=== PATIENT | female | born 1940 | race Caucasian/White ===

== ENCOUNTER 2019-04-06 11:19 | Observation (INO) ==
[2019-04-06] MEDS ORDERED: Ipratropium/Albuterol Neb 3 ML IH ONE (11:41)
[2019-04-06] MEDS ORDERED: 0.9 % Sodium Chloride 500 ML IVC ONE (11:41)
[2019-04-06] MEDS ORDERED: Isovue-370 500 ML BOTTLE IVP ONE (11:41)
--- NOTE | 2019-04-06 11:44 | Emergency Department Note ---
Disposition Clinical Impression: Community acquired pneumonia Qualifiers: Laterality: right Lung location: lower lobe of lung Qualified Code(s): J18.1 - Lobar pneumonia, unspecified organism Atrial fibrillation Qualifiers: Atrial fibrillation type: paroxysmal Qualified Code(s): I48.0 - Paroxysmal atrial fibrillation Disposition: Admitted As Inpatient Condition: Fair Referrals: Ahsan Swift MD [Primary Care Provider] - Forms: ED Satisfaction Letter Time of Disposition: 13:41 SOB HPI - General Chief Complaint: ED Shortness of Breath/Dyspnea Stated Complaint: SHORTNESS OF BREATH Time Seen by Provider: 04/06/19 11:23 Source: patient Mode of arrival: private vehicle Limitations: no limitations Nursing Notes Reviewed: Yes Vital Signs Reviewed: Yes - History of Present Illness Pt Subjective Complaint: shortness of breath Onset (ago): hour(s) (Says it started about 4:00 this morning) Context: recent illness (Patient has had a cough for about a week. She saw her PCP yesterday and he put her on antibiotic and prednisone. She took that yesterday. She says this morning about 4:00 she woke up to take her cough medication. She had had some episode of breaking out in a sweat earlier in the evening. She had no further sweating episodes but she noticed that when she got up and walked she felt some shortness of breath. She then noticed that the shortness of breath was worse when she lays down in the bed. Now she is not icing it not as bad when she is walking around mostly when she is laying down. She is very concerned is related to the medications she was given.) Severity: severe Consistency/Duration: constant Worsens with: lying flat Associated symptoms: Reports: cough. Denies: chest pain, fever, lower extremity pain Cough present: Yes Cough Description: Involuntary, Productive Sputum Amount: Moderate Sputum Color: Yellow - Related Data Home oxygen amount: none Home Medications Medication Instructions Recorded Confirmed Citalopram [CeleXA] 20 mg PO DAILY 07/29/17 04/06/19 Amoxicillin 875 mg PO BID 04/06/19 04/06/19 Guaifenesin/Codeine Phosphate 5 ml PO Q4-6H PRN 04/06/19 04/06/19 [Guaifen-Codeine 100-10 mg/5 ml] predniSONE [PredniSONE] 20 mg PO DAILY 04/06/19 04/06/19 Allergies Allergy/AdvReac Type Severity Reaction Status Date / Time cefdinir Allergy Rash Verified 03/17/19 08:43 doxycycline AdvReac Vomiting Verified 03/17/19 08:43 All systems ED: reviewed and negative except as stated. Constitutional: Reports: chills. Denies: fever ENT ED: Reports: congestion. Denies: ear pain, throat pain Cardiovascular: Denies: chest pain, palpitations Respiratory: Reports: cough, dyspnea, wheezes Gastrointestinal: Denies: abdominal pain, vomiting, diarrhea Musculoskeletal: Denies: back pain Integumentary: Denies: rash Past Medical History - Past Medical History Attestation: Yes The following information was validated with the patient. 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 Absent: scleral icterus, conjunctival injection - ENT ENT exam: normal exam, normal oropharynx, mucous membranes moist, normal external ear exam - Neck Neck exam: Present: normal inspection, full ROM, trachea midline. Absent: meningismus, lymphadenopathy - Chest Chest inspection: Present: normal inspection, symmetric chest wall rise. Absent: tenderness - Respiratory Respiratory exam: Present: wheezes (Faint end expiratory wheezes bilaterally). Absent: respiratory distress - Cardiovascular Cardiovascular exam: Present: regular rate, normal rhythm, normal heart sounds - Abdominal Exam Abdominal exam: Present: soft, Non-Tender, normal bowel sounds - Extremities Exam Extremities exam: Present: normal inspection. Absent: pedal edema - Neurological Exam Neurological exam: Present: alert, oriented X3 - Psychiatric Psychiatric exam: Present: normal affect, normal mood - Skin Skin exam: Present: warm, dry. Absent: rash Course Course Narrative: Patient presents with a complaint of shortness of breath. She is concerned he may be related to medications. The Story I am hearing is a lady who is been coughing for a week that has been productive of yellow sputum. She saw her doctor got started on antibiotics and steroids because of concern for lung infection. In the middle the night she breaks out in sweats. She starts feeling more short of breath. This has me concerned for pneumonia or infection. However she does describe more shortness of breath with being supine which makes concern for CHF. Looking back at her old records I see that she is following up with vascular for a superficial clot in her leg. This makes us concerned for the possibility of pulmonary embolism as a cause of her symptoms. I am going to do an infectious disease workup and the shortness of breath workup that will include a chest CT to delineate pulmonary pathology. Breathing treatments and fluids. Disposition will be based on diagnostic results and reevaluation. - Reevaluation(s) Reevaluation #1: Labs look good. CT of the chest did not show any evidence of pulmonary embolism but there is a groundglass opacification in the right lower lobe that seems consistent with pneumonia. The overall story certainly seems consistent with pneumonia. Symptoms are worsening despite outpatient therapy. I think the patient needs admission for IV antibiotics. Furthermore, while getting the breathing treatments the patient went into atrial fibrillation. The rate is 110. Despite being in atrial fibrillation she says her breathing is much better. That we will have to be monitored while she is in house. Time: 13:19 Reevaluation #2: Patient is still in atrial fibrillation but heart rate now is between 95 and 105. Blood pressure is fine. I discussed the case with the hospitalist. We will admit her to the hospital to treat the pneumonia. Workup and a monitor the atrial fibrillation as a response to the breathing treatment medication. Hop efully it will slip back into sinus rhythm. I am going to hold off on breathing treatments on the floor for now. Time: 13:40 - Consultations Consultation #1: Dr. Contreras, hospitalist - I discussed the case with the hospitalist. He accepted the patient for admission. At this point were going to just observe the patient with the atrial fibrillation at this point. Hopefully it will go back to sinus rhythm as the breathing treatment medication wears off. Time: 13:38 Vital Signs Temperature 98.5 F 04/06/19 11:20 Pulse Rate 82 04/06/19 11:20 Respiratory Rate 18 04/06/19 11:20 Blood Pressure 159/75 04/06/19 11:20 O2 Sat by Pulse Oximetry 96 04/06/19 11:20 Temperature 98.5 F 04/06/19 11:20 Pulse Rate 124 04/06/19 13:30 Respiratory Rate 15 04/06/19 13:30 Blood Pressure 122/58 04/06/19 13:30 O2 Sat by Pulse Oximetry 92 04/06/19 13:30 Oxygen Delivery Oxygen Delivery Room Air Shortness of Breath/Dyspnea - Medical Records Medical records reviewed: Yes I reviewed the patient's medical records. - Lab Data Lab results reviewed: Yes I reviewed the patient's lab results. Result diagrams: 04/06/19 11:55 04/06/19 11:55 Lab Results 04/06/19 04/06/19 04/06/19 Range/Units 11:55 11:55 11:55 WBC 3.9 L (4.3-11.1) K/mcL RBC 4.08 (3.82-4.97) M/mcL Hgb 12.6 (11.5-15.4) g/dL Hct 38.6 (35.3-44.9) % MCV 94.6 (83.0-100.0) fL MCH 30.9 (28.0-33.3) pg MCHC 32.6 (31.6-35.5) g/dL RDW 13.3 (11.5-14.5) % Plt Count 102 L (140-400) K/mcL MPV 11.1 (9.4-12.4) fL Seg Neutrophils % 64.0 % Band Neutrophils % 16.0 H (0-4) % Lymphocytes % 8.0 % Monocytes % 12.0 % Neutrophils # 3.1 (1.6-8.9) K/mcL Lymphocytes # 0.3 L (0.6-4.6) K/mcL Monocytes # 0.5 (0.0-1.3) K/mcL Platelet Estimate Slight Decrease L (Normal) Sodium 136 (136-145) mEq/L Potassium 3.6 (3.5-5.1) mEq/L Chloride 100 (98-107) mEq/L Carbon Dioxide 28 (23-29) mEq/L BUN 19 (8-23) mg/dL Creatinine 0.76 (0.60-1.20) mg/dL Est GFR ( Amer) > 60 (> 60) Est GFR (Non-Af Amer) > 60 (> 60) BUN/Creatinine Ratio 25 (6-26) Glucose 105 (70-105) mg/dL Calculated Osmolality 285 (280-300) Lactic Acid 0.8 (0.5-2.2) mmol/L Calcium 9.0 (8.6-10.3) mg/dL Troponin I (< 0.04) ng/mL 04/06/19 Range/Units 11:55 WBC (4.3-11.1) K/mcL RBC (3.82-4.97) M/mcL Hgb (11.5-15.4) g/dL Hct (35.3-44.9) % MCV (83.0-100.0) fL MCH (28.0-33.3) pg MCHC (31.6-35.5) g/dL RDW (11.5-14.5) % Plt Count (140-400) K/mcL MPV (9.4-12.4) fL Seg Neutrophils % % Band Neutrophils % (0-4) % Lymphocytes % % Monocytes % % Neutrophils # (1.6-8.9) K/mcL Lymphocytes # (0.6-4.6) K/mcL Monocytes # (0.0-1.3) K/mcL Platelet Estimate (Normal) Sodium (136-145) mEq/L Potassium (3.5-5.1) mEq/L Chloride (98-107) mEq/L Carbon Dioxide (23-29) mEq/L BUN (8-23) mg/dL Creatinine (0.60-1.20) mg/dL Est GFR ( Amer) (> 60) Est GFR (Non-Af Amer) (> 60) BUN/Creatinine Ratio (6-26) Glucose (70-105) mg/dL Calculated Osmolality (280-300) Lactic Acid (0.5-2.2) mmol/L Calcium (8.6-10.3) mg/dL Troponin I < 0.03 (< 0.04) ng/mL - Radiology Data Radiology results reviewed: Yes I reviewed the patient's radiology results. - EKG Data EKG attestation: Yes I reviewed and interpreted this EKG. EKG results narrative: Twelve-lead EKG performed at 11:21 AM. Ordered, reviewed and interpreted by ED physician shows sinus rhythm at a rate of 75. Normal axis. Left bundle branch block. Occasional PVC. Good R wave progression across precordium. No acute ischemic changes. Repeat EKG performed at 1302 p.m. Ordered, reviewed and interpreted by ED physician shows atrial fibrillation at a rate of 109. Normal axis. Left bundle branch block. Good hour progression across precordium. No obvious acute ischemic changes.
[2019-04-06 12:02] LABS: Hematocrit 38.6 % (35.3-44.9); Hemoglobin 12.6 g/dL (11.5-15.4); Mean Corpuscular HGB Conc 32.6 g/dL (31.6-35.5); Mean Corpuscular Hemoglobin 30.9 pg (28.0-33.3); Mean Corpuscular Volume 94.6 fL (83.0-100.0); Mean Platelet Volume 11.1 fL (9.4-12.4); Platelet Count 102 K/mcL (140-400); Red Blood Count 4.08 M/mcL (3.82-4.97); Red Cell Distribution Width 13.3 % (11.5-14.5); White Blood Count 3.9 K/mcL (4.3-11.1)
[2019-04-06 12:15] LABS: Lymphocytes # 0.3 K/mcL (0.6-4.6); Monocytes # 0.5 K/mcL (0.0-1.3); Neutrophils # 3.1 K/mcL (1.6-8.9); Platelet Estimate Slight Decrease (Normal)
[2019-04-06 12:20] LABS: BUN/Creatinine Ratio 25 (6-26); Blood Urea Nitrogen 19 mg/dL (8-23); Carbon Dioxide 28 mEq/L (23-29); Chloride 100 mEq/L (98-107); Glucose 105 mg/dL (70-105); Osmolality,Calculated 285 (280-300); Potassium 3.6 mEq/L (3.5-5.1); Sodium 136 mEq/L (136-145); eGFR For African Americans > 60 (> 60); eGFR For Non-African Americans > 60 (> 60)
[2019-04-06] MEDS ORDERED: Azithromycin 500 MG in D5% in Water 250 ML IVPB ONE ×2 (13:17→13:55)
[2019-04-06] MEDS ORDERED: Naloxone 0.4 MG/ML INJ IVP PRN (13:55)
[2019-04-06] MEDS: MethylPREDNISolone 40 MG/ML VIAL IVP SCH (15:43)
[2019-04-06] MEDS: 0.9 % Sodium Chloride 1,000 ML IVC SCH (15:43)
[2019-04-07] MEDS: MethylPREDNISolone 40 MG/ML VIAL IVP SCH ×3 (01:35→15:46)
[2019-04-07] MEDS: 0.9 % Sodium Chloride 1,000 ML IVC SCH (01:51)
--- NOTE | 2019-04-07 10:21 | Electrocardiograph Report ---
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
--- NOTE | 2019-04-07 12:18 | Internal Med History&Physical ---
Date of Encounter: 04/07/19 Time of Encounter: 11:35 Assessment and Plan (1) Community acquired pneumonia Current visit: Yes Status: Acute She was started on Rocephin and Zithromax in emergency room with Solu-Medrol. These will be continued with lactobacillus. Pro-calcitonin level will be done. Qualifiers: Laterality: right Lung location: lower lobe of lung Qualified Code(s): J18.1 - Lobar pneumonia, unspecified organism (2) Thrombocytopenia Current visit: Yes Status: Acute Intermittent. She does not need intervention at this time. Her PCP and/or hematology/oncology physician can order further workup. Internal Medicine - H&P: HPI Chief complaint: Cough and dyspnea Admitted From: Emergency Dept Plans for Post Hospital Care: Home History of present illness: Ms. Freeman is a 78 year old female who came to emergency room complaining of cough onset 04/01/2019. There was minimal productivity of yellow sputum. Approximately 3 days later she developed worsening dyspnea and cough. She saw her PCP and received prescriptions for amoxicillin, prednisone, and antitussive. She did not feel improved by the following day so came to emergency room. She was evaluated and was felt to have RLL pneumonia. She was admitted to [facility] floor for ongoing care needs. She states her cough and dyspnea have lessened but she does not feel back to her baseline yet. Respiratory history is significant for smoking approximately 2 years in early adulthood. She denies known chronic lung disease and does not use home oxygen. She has not been tested for sleep apnea. Past Med Surg Social Fam HX - Past Medical History Medical history: cancer, hyperlipidemia, venous stasis, other Additional medical history: venous insufficiency. varicose veins Psychiatric history: anxiety - Past Surgical History Surgical History: cataract, herniorrhaphy Additional surgical history: multiple phlebectomies, right hemicolectomy, left replacement, bilater LE phlebectomy, LASER SURGERY TO INCREASE CIRCULATION LT LEG (PHLEBECTOMY) 03/19 - Social History Smoking Status: Never smoker Smokeless Tobacco Status: No Alcohol use: none Drug use: none Internal Medicine - H&P: Meds Citalopram [CeleXA] 20 mg PO DAILY 07/29/17 [History] Amoxicillin 875 mg PO BID 04/06/19 [History] Guaifenesin/Codeine Phosphate [Guaifen-Codeine 100-10 mg/5 ml] 5 ml PO Q4-6H PRN 04/06/19 [History] predniSONE [PredniSONE] 20 mg PO DAILY 04/06/19 [History] Allergy/AdvReac Type Severity Reaction Status Date / Time cefdinir Allergy Rash Verified 03/17/19 08:43 doxycycline AdvReac Vomiting Verified 03/17/19 08:43 All Systems PM: A 10-system review of systems was performed and is negative for pertinent findings except as documented above in the HPI. Review of systems: Gen.: Her weight has minimally changed from 88.36 kg October 2017 to present weight of 90.378 kg. Cardiovascular: She denies hypertension ND heart failure angina DVT or pulmonary embolus. She has had varicose vein treatment on her lower legs. Echocardiogram 08/30/2017 showed LVEF of 55%. There was mild mitral regu rgitation. Trivial pericardial effusion was present without evidence of tamponade. The interventricular septum and posterior wall thickness measurements were 1.30 and 0.89 cm respectively. E/A ratio was 0.9. The chart reports a history of atrial fibrillation. Respiratory: As per history of present illness GI: She denies disorders of her liver gallbladder or exocrine pancreas : She denies hematuria dysuria or kidney stones Neurologic: She denies large distribution strokes or seizures. Endocrine: She has history of hyperlipidemia but does not take medication at this time. She denies diabetes or thyroid disease Hematology/oncology: She has had intermittent thrombocytopenia on labs since June 2015. She denies workup being done. 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 It was found to be stage I and no adjuvant therapy was required. She reports follow-up colonoscopy December 2018 was unremarkable. She denies anemia or other internal malignancies Psychiatric: She has anxiety and depression but denies other mental health diagnoses. [place] skeletal: She has DJD. She had left total knee replacement 2007. She denies gout or other bone joint or muscle disorders. - Constitutional Vitals: Temp Pulse Resp BP Pulse Ox 98.2 F 69 20 171/96 91 04/07/19 11:03 04/07/19 11:03 04/07/19 11:03 04/07/19 11:03 04/07/19 11:03 Exam: Gen.: She is a well-developed overweight female resting comfortably in bed who appears in no acute distress HEENT: Head is atraumatic and normocephalic. Eyes: EOMI. There is no scleral icterus. Mouth: Mucosa is moist. Neck: Supple and nontender. There is no thyromegaly or adenopathy noted. Heart: Regular without murmurs gallops or ectopics Lungs: She has slightly prolonged expiratory phase with mild wheezing. No inspiratory crackles are heard. Abdomen: There is a well-healed lower midline abdominal scar. No masses or guarding are noted. Extremities: She has mild DJD changes of her hands and feet. Dorsalis pedis and posterior tibial pulses are trace palpable bilaterally. Neurologic: Mental status: She is talkative and a good historian. Cranial nerves: Smile is symmetric. Forehead wrinkles bilaterally. Tongue protrudes midline. EOMI. Motor: There is no pronator drift. Cerebellar: Finger to nose is intact bilaterally. Skin: Warm and dry Internal Med - H&P Results - Labs CBC & Chem 7: 04/06/19 11:55 04/06/19 11:55 Labs: Short CBC 04/06/19 Range/Units 11:55 Neutrophils # 3.1 (1.6-8.9) K/mcL BMP 04/06/19 11:55 Sodium 136 Potassium 3.6 Chloride 100 Carbon Dioxide 28 BUN 19 Creatinine 0.76 Glucose 105 Calcium 9.0 Cardiac Enzymes 04/06/19 04/06/19 04/06/19 Range/Units 11:55 14:15 20:00 Troponin I < 0.03 < 0.03 0.03 (< 0.04) ng/mL 04/07/19 Range/Units 01:57 Troponin I < 0.03 (< 0.04) ng/mL - Impressions ITS Impressions Chest CTA 04/06/19 11:40 IMPRESSION: 1. No pulmonary embolus. 2. Bronchial wall thickening in the right lower lobe bronchus with more focal soft tissue appearing area measuring 1.5 x 1.1 cm. Findings could be related to collapse of the airway given breathing artifact. Consider follow-up bronchoscopy to exclude an underlying mass. 3. Subtle ground-glass and subsolid nodules within the right lower lobe, the largest measuring up to 7 mm. These are likely infectious or inflammatory in etiology. However, recommend follow-up per Fleischner Society guidelines. RECOMMENDATIONS: Fleischner Society guidelines for follow-up and management of incidentally detected subsolid pulmonary nodules: Multiple subsolid nodules < 6 mm - CT at 3-6 months. If stable, consider CT at 2 and 4 years. > than or equal to [address] - [address] at 3-6 months. Subsequent management based on the most suspicious nodule(s). - Low risk patients include individuals with minimal or absent history of smoking and other known risk factors. - High risk patients include individuals with a history or smoking or known risk factors. Radiology 2017 http://pubs.rsna.org/doi/full/10.1148/radiol.[email or web address] D/ / 04/06/2019 13:02:21 Ledy Craig MD / anni Interpreting Provider: Ledy Craig MD
[2019-04-07] MEDS: Budesonide/Formoterol 160/4.5 1 PUFF INH IH SCH ×2 (14:14→22:20)
--- NOTE | 2019-04-07 14:28 | Electrocardiograph Report ---
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
[2019-04-07] MEDS: cefTRIAXone 1,000 MG in Water for inj. (sterile) 10 ML IVPB SCH (15:45)
[2019-04-07] MEDS: Azithromycin 500 MG in D5% in Water 250 ML IVPB SCH (15:46)
[2019-04-07] MEDS: Lactobacillus 1 EACH CAP.SPRINK PO SCH (21:14)
[2019-04-08] MEDS: MethylPREDNISolone 40 MG/ML VIAL IVP SCH ×4 (00:43→23:06)
[2019-04-08 05:47] LABS: Hematocrit 37.7 % (35.3-44.9); Hemoglobin 12.3 g/dL (11.5-15.4); Lymphocytes # 0.6 K/mcL (0.6-4.6); Mean Corpuscular HGB Conc 32.6 g/dL (31.6-35.5); Mean Platelet Volume 12.1 fL (9.4-12.4); Platelet Count 100 K/mcL (140-400); Red Blood Count 3.97 M/mcL (3.82-4.97); Red Cell Distribution Width 13.2 % (11.5-14.5); White Blood Count 3.1 K/mcL (4.3-11.1)
[2019-04-08 06:50] LABS: Anisocytosis 1+ (Not Present); Monocytes # 0.5 K/mcL (0.0-1.3); Platelet Estimate Normal (Normal); Polychromasia 1+ (Not Present); Reactive Lymphocytes Present (Not Present)
[2019-04-08] MEDS: Lactobacillus 1 EACH CAP.SPRINK PO SCH ×2 (08:57→20:43)
[2019-04-08] MEDS: Budesonide/Formoterol 160/4.5 1 PUFF INH IH SCH ×2 (09:11→22:05)
--- NOTE | 2019-04-08 09:45 | Internal Med Progress Note ---
Date of Encounter: 04/08/19 Time of Encounter: 09:38 - Assessment and plan (1) Community acquired pneumonia Current Visit: Yes Status: Acute Assessment and plan: April 08. Continue Rocephin, Zithromax, Solu-Medrol, Symbicort, and lactobacillus. Qualifiers: Laterality: right Lung location: lower lobe of lung Qualified Code(s): J18.1 - Lobar pneumonia, unspecified organism (2) Thrombocytopenia Current Visit: Yes Status: Acute Assessment and plan: April 08. Platelet count stable at 100 K. Continue to monitor. - Subjective Interval history: April 08. She has no new complaints. She feels slightly improved but not yet back to her baseline. - Constitutional Vitals: Temp Pulse Resp BP Pulse Ox 98.3 F 71 18 132/74 94 04/08/19 06:42 04/08/19 06:42 04/08/19 09:12 04/08/19 06:42 04/08/19 09:12 Exam: She is sitting on the side of bed. She can converse with minimal dyspnea. Oxygen saturation is 94-95% on room air. Lungs show prolonged expiratory phase with mild diffuse wheezing. I reviewed her medications and lab results. Internal Medicine: Result - Labs CBC & Chem 7: 04/08/19 05:12 04/06/19 11:55 Labs: Short CBC 04/08/19 Range/Units 05:12 WBC 3.1 L (4.3-11.1) K/mcL Hgb 12.3 (11.5-15.4) g/dL Hct 37.7 (35.3-44.9) % Plt Count 100 L (140-400) K/mcL Neutrophils # 2.0 (1.6-8.9) K/mcL - Impressions Impressions Chest CTA 04/06/19 11:40 IMPRESSION: 1. No pulmonary embolus. 2. Bronchial wall thickening in the right lower lobe bronchus with more focal soft tissue appearing area measuring 1.5 x 1.1 cm. Findings could be related to collapse of the airway given breathing artifact. Consider follow-up bronchoscopy to exclude an underlying mass. 3. Subtle ground-glass and subsolid nodules within the right lower lobe, the largest measuring up to 7 mm. These are likely infectious or inflammatory in etiology. However, recommend follow-up per Fleischner Society guidelines. RECOMMENDATIONS: Fleischner Society guidelines for follow-up and management of incidentally detected subsolid pulmonary nodules: Multiple subsolid nodules < [address] - [address] at 3-6 months. If stable, consider CT at 2 and 4 years. > than or equal to [address] - [address] at 3-6 months. Subsequent management based on the most suspicious nodule(s). - Low risk patients include individuals with minimal or absent history of smoking and other known risk factors. - High risk patients include individuals with a history or smoking or known risk factors. Radiology 2017 http://pubs.rsna.org/doi/full/10.1148/radiol.[email or web address] D/ / 04/06/2019 13:02:21 Ledy Craig MD / anni Interpreting Provider: Ledy Craig MD Consult Discharge Plan - Plan Referrals: Ahsan Swift MD [Primary Care Provider] - 1 week
[2019-04-08] MEDS: cefTRIAXone 1,000 MG in Water for inj. (sterile) 10 ML IVPB SCH (14:59)
[2019-04-08] MEDS: Azithromycin 500 MG in D5% in Water 250 ML IVPB SCH (15:01)
[2019-04-08] MEDS: Albuterol 2.5 MG/3 ML NEBULIZER IH PRN (22:13)
[2019-04-09 06:01] LABS: Hematocrit 36.9 % (35.3-44.9); Hemoglobin 12.2 g/dL (11.5-15.4); Mean Corpuscular HGB Conc 33.1 g/dL (31.6-35.5); Mean Corpuscular Hemoglobin 31.2 pg (28.0-33.3); Mean Corpuscular Volume 94.4 fL (83.0-100.0); Mean Platelet Volume 12.2 fL (9.4-12.4); Platelet Count 109 K/mcL (140-400); Red Blood Count 3.91 M/mcL (3.82-4.97); Red Cell Distribution Width 13.2 % (11.5-14.5); White Blood Count 4.5 K/mcL (4.3-11.1)
[2019-04-09 06:20] LABS: BUN/Creatinine Ratio 31 (6-26); Blood Urea Nitrogen 19 mg/dL (8-23); Calcium 9.1 mg/dL (8.6-10.3); Carbon Dioxide 27 mEq/L (23-29); Chloride 103 mEq/L (98-107); Glucose 222 mg/dL (70-105); Osmolality,Calculated 295 (280-300); Potassium 3.5 mEq/L (3.5-5.1); Sodium 138 mEq/L (136-145); eGFR For African Americans > 60 (> 60); eGFR For Non-African Americans > 60 (> 60)
[2019-04-09 06:42] LABS: Monocytes # 0.4 K/mcL (0.0-1.3); Neutrophils # 3.1 K/mcL (1.6-8.9)
[2019-04-09 06:43] LABS: Anisocytosis 1+ (Not Present)
[2019-04-09 06:46] VITALS: BP 174/80
[2019-04-09 06:46] LABS: Large Platelets Present (Not Present); Platelet Estimate Slight Decrease (Normal)
[2019-04-09 06:50] LABS: Poikilocytosis 1+ (Not Present)
[2019-04-09 06:55] LABS: Toxic Granulation Present (Not Present)
--- NOTE | 2019-04-09 09:30 | Discharge Summary ---
Orders not resulted at time of discharge: Pending orders 04/06/19 12:00 Culture,Blood [BC] Stat Date of Encounter: 04/09/19 Time of Encounter: 09:20 - Discharge Diagnosis (1) Community acquired pneumonia Priority: Primary Status: Acute Qualifiers: Laterality: right Lung location: lower lobe of lung Qualified Code(s): J18.1 - Lobar pneumonia, unspecified organism (2) Thrombocytopenia Priority: Secondary Status: Chronic Hospital course: Ms. Freeman is a 78 year old female who came to emergency room complaining of cough onset 04/01/2019. There was minimal productivity of yellow sputum. Approximately 3 days later she developed worsening dyspnea and cough. She saw her PCP and received prescriptions for amoxicillin, prednisone, and antitussive. She did not feel improved by the following day so came to emergency room. She was evaluated and was felt to have RLL pneumonia. She was admitted to [facility] floor for ongoing care needs. Initial orders were written by the emergency room physician. I saw her on April 07 performed a history and physical. She was started empirically on Rocephin and Zithromax with Solu-Medrol in emergency room. Lactobacillus was given. Procalcitonin level returned WNL at 0.03. Antibiotics will not be continued at discharge. WBC normalized by day of discharge with resolution of left shift. BN peptide was minimally elevated at 149 on day of discharge. Room air oximetry on April 08 showed saturation remaining in satisfactory range. On April 09 she was stable for discharge home. She will follow with her PCP Dr. Swift within 1 week. - Time Spent with Patient Total time spent providing and/or coordinating discharge services: - Discharge Medications Prescriptions: Continued Citalopram [CeleXA] 20 mg PO DAILY Guaifenesin/Codeine Phosphate [Guaifen-Codeine 100-10 mg/5 ml] 5 ml PO Q4-6H PRN PRN Reason: Cough predniSONE [PredniSONE] 20 mg PO DAILY Discontinued Amoxicillin 875 mg PO BID Home Medications: Citalopram [CeleXA] 20 mg PO DAILY 07/29/17 [History] Guaifenesin/Codeine Phosphate [Guaifen-Codeine 100-10 mg/5 ml] 5 ml PO Q4-6H PRN 04/06/19 [History] predniSONE [PredniSONE] 20 mg PO DAILY 04/06/19 [History] Allergies/Adverse Reactions: Allergy/AdvReac Type Severity Reaction Status Date / Time cefdinir Allergy Rash Verified 03/17/19 08:43 doxycycline AdvReac Vomiting Verified 03/17/19 08:43 Date of admission: 04/06/19 13:50 Primary care physician: Ahsan Swift MD - Constitutional Vitals: Temp Pulse Resp BP Pulse Ox 97.7 F 66 16 174/80 97 04/09/19 06:44 04/09/19 06:44 04/09/19 06:44 04/09/19 06:44 04/09/19 06:44 - Patient Status Disposition: Home, Self-Care Condition: Fair - Discharge Instructions Follow Up With: Ahsan Swift MD [Primary Care Provider] - 1 week - Diet and Activity Activity: resume usual activities as tolerated Diet: advance to your usual diet
[2019-04-09] MEDS: Albuterol 2.5 MG/3 ML NEBULIZER IH PRN (09:32)
[2019-04-09] MEDS: Budesonide/Formoterol 160/4.5 1 PUFF INH IH SCH (09:32)
[2019-04-09] MEDS: Lactobacillus 1 EACH CAP.SPRINK PO SCH (09:34)
[2019-04-09] MEDS: MethylPREDNISolone 40 MG/ML VIAL IVP SCH (09:34)
== END 2019-04-09 11:18 | disposition home or self-care (01) ==
LOC: INPPIK 11:19 → EMEROOPIK 11:19 → INPPIK 14:16
PROVIDERS: ADMIT Internal Medicine; ATTEND Internal Medicine

== ENCOUNTER 2019-12-28 10:33 | Inpatient (IN) ==
[2019-12-28] MEDS ORDERED: Ipratropium/Albuterol Neb 3 ML IH ONE (10:44)
[2019-12-28] MEDS ORDERED: 0.9 % Sodium Chloride 1,000 ML IVC ONE (10:44)
[2019-12-28 11:14] LABS: Eosinophils % 0.5 %; Hematocrit 36.3 % (35.3-44.9); Hemoglobin 11.7 g/dL (11.5-15.4); Immature Granulocytes % 1.3 % (0-4); Lymphocytes # 1.6 K/mcL (0.6-4.6); Lymphocytes % 40.7 %; Mean Corpuscular HGB Conc 32.2 g/dL (31.6-35.5); Mean Platelet Volume 11.1 fL (9.4-12.4); Monocytes # 0.6 K/mcL (0.0-1.3); Monocytes % 14.2 %; Neutrophils # 1.7 K/mcL (1.6-8.9); Platelet Count 119 K/mcL (140-400); Red Blood Count 3.78 M/mcL (3.82-4.97); Red Cell Distribution Width 13.5 % (11.5-14.5); Segmented Neutrophils % 43.3 %; White Blood Count 3.9 K/mcL (4.3-11.1)
[2019-12-28 11:29] LABS: BUN/Creatinine Ratio 16 (6-26); Blood Urea Nitrogen 12 mg/dL (8-23); Carbon Dioxide 31 mEq/L (23-29); Chloride 104 mEq/L (98-107); Glucose 107 mg/dL (70-105); Osmolality,Calculated 294 (280-300); Potassium 3.6 mEq/L (3.5-5.1); Sodium 142 mEq/L (136-145); eGFR For African Americans > 60 (> 60); eGFR For Non-African Americans > 60 (> 60)
[2019-12-28 11:31] LABS: Troponin I < 0.03 ng/mL (< 0.04)
[2019-12-28] MEDS ORDERED: Ondansetron 4 MG/2 ML VIAL IVP PRN (12:21)
[2019-12-28] MEDS ORDERED: Mag Hydrox/Al Hydrox/Simeth 30 ML UDC PO PRN (12:21)
[2019-12-28] MEDS ORDERED: MOM Conc 10 ML UD.LIQ PO PRN (12:21)
[2019-12-28] MEDS ORDERED: Naloxone 0.4 MG/ML INJ IVP PRN (12:21)
[2019-12-28] MEDS: Ringers Solution, Lactated 1,000 ML IVC SCH ×2 (15:11→22:50)
[2019-12-28] MEDS ORDERED: Benzonatate 100 MG CAPSULE PO PRN (16:53)
[2019-12-28] MEDS ORDERED: Ipratropium/Albuterol Neb 3 ML IH PRN (17:56)
[2019-12-28] MEDS: Ipratropium/Albuterol Neb 3 ML IH SCH ×2 (19:54→23:23)
[2019-12-28] MEDS ORDERED: Haloperidol Lactate 5 MG/ML VIAL IVP ONE (22:02)
[2019-12-29] MEDS ORDERED: *HR* LORazepam 1 MG TABLET PO ONE (00:07)
[2019-12-29] MEDS: Ipratropium/Albuterol Neb 3 ML IH SCH ×6 (03:55→23:36)
[2019-12-29 06:31] LABS: Eosinophils % 0.6 %; Hematocrit 31.8 % (35.3-44.9); Immature Granulocytes % 1.5 % (0-4); Lymphocytes # 1.1 K/mcL (0.6-4.6); Mean Corpuscular HGB Conc 31.4 g/dL (31.6-35.5); Mean Corpuscular Hemoglobin 30.6 pg (28.0-33.3); Mean Corpuscular Volume 97.2 fL (83.0-100.0); Monocytes # 0.6 K/mcL (0.0-1.3); Monocytes % 16.4 %; Neutrophils # 1.7 K/mcL (1.6-8.9); Platelet Count 103 K/mcL (140-400); Red Blood Count 3.27 M/mcL (3.82-4.97); Red Cell Distribution Width 13.3 % (11.5-14.5); Segmented Neutrophils % 50.5 %; White Blood Count 3.4 K/mcL (4.3-11.1)
[2019-12-29 06:50] LABS: BUN/Creatinine Ratio 12 (6-26); Blood Urea Nitrogen 8 mg/dL (8-23); Calcium 8.4 mg/dL (8.6-10.3); Carbon Dioxide 32 mEq/L (23-29); Chloride 107 mEq/L (98-107); Glucose 108 mg/dL (70-105); Osmolality,Calculated 295 (280-300); Potassium 3.5 mEq/L (3.5-5.1); Sodium 143 mEq/L (136-145); eGFR For African Americans > 60 (> 60); eGFR For Non-African Americans > 60 (> 60)
[2019-12-29] MEDS: Multivit/Ca/Min/Fe/FA 1 TAB TABLET PO SCH (08:47)
[2019-12-29] MEDS: Furosemide 20 MG TABLET PO SCH (08:47)
[2019-12-29] MEDS ORDERED: hydrOXYzine pamoate 25 MG CAPSULE PO PRN (17:45)
[2019-12-30] MEDS: Ipratropium/Albuterol Neb 3 ML IH SCH ×3 (04:30→12:09)
[2019-12-30 07:25] VITALS: BP 100/56
[2019-12-30] MEDS: Multivit/Ca/Min/Fe/FA 1 TAB TABLET PO SCH (08:37)
[2019-12-30] MEDS: Furosemide 20 MG TABLET PO SCH (08:37)
== END 2019-12-30 12:20 | disposition home or self-care (01) | DRG 195 ==
LOC: INPPIK 10:33 → EMEROOPIK 10:33 → INPPIK 13:25
PROVIDERS: ADMIT Family Medicine; ATTEND Family Medicine